=== PATIENT | male | born 1945 | race Caucasian/White ===

== ENCOUNTER 2019-03-04 20:05 | Emergency (ER) | payer MEDICARE, OTHER ==
[~2019-03-04] VITALS: Ht 180.3 cm; Wt 75.0 kg
[2019-03-04 20:42] LABS: BASO % 0.4 % (0.0-2.0); EOS # 0.1 (0.0-0.7); EOS % 2.5 % (0-4.0); GRAN # 3.7 (1.4-6.5); LYMPH # 0.8 (1.2-3.4); LYMPH % 15.2 % (20.0-51.0); MEAN CELL VOLUME 101 fl (80.0-100.0); MEAN CORPUSCULAR HGB CONC 33 g/dl (33.0-37.0); MEAN PLATELET VOLUME 9.9 fl (7.4-10.4); MONO # 0.5 (0.1-0.6); MONO % 10.3 % (1.7-9.3); PLATELET COUNT 104 K/mm3 (130-400); RED BLOOD COUNT 1.79 M/mm3 (4.20-5.60); REDCELL DISTRIBUTION WIDTH-CV 17.5 % (11.5-14.5)
[2019-03-04 20:45] LABS: PROTHROMBIN TIME 11.5 SECONDS (9.7-12.8)
[2019-03-04 20:46] LABS: HEMATOCRIT 18.1 % (42.0-52.0); MEAN CORPUSCULAR HEMOGLOBIN 34 pg (27.0-31.0)
[2019-03-04 20:52] LABS: ALBUMIN 2.6 gm/dL (3.5-5.0); BILIRUBIN,TOTAL 0.1 mg/dL (0.0-1.0); CALCIUM 7.8 mg/dL (8.4-10.2); CREATININE, serum 1.6 (0.66-1.25); POTASSIUM 4.2 mmol/L (3.4-5.0); TOTAL PROTEIN 4.7 gm/dL (6.4-8.2)
[2019-03-04 21:06] LABS: COLLECTION METHOD CLEAN CATCH
[2019-03-04 21:17] LABS: PH 6 (5-8); SQUAMOUS EPITHELIAL None Seen /hpf; URINE APPEARANCE Turbid; URINE BACTERIA None Seen /hpf; URINE BILIRUBIN Negative (NEGATIVE); URINE BLOOD 3+ (NEGATIVE); URINE COLOR Red; URINE GLUCOSE 1+ (NEGATIVE); URINE KETONE Trace (NEGATIVE); URINE LEUKOCYTE ESTERASE Negative (NEGATIVE); URINE NITRATE Negative (NEGATIVE); URINE PROTEIN(semi-quant) 2+ (NEGATIVE); URINE RBC >50 /hpf; URINE UROBILINOGEN Negative (NEGATIVE)
[2019-03-04 22:33] VITALS: BP 123/61; PULSE 80; TEMP 98.3
[2019-03-04 22:35] VITALS: BP 133/61; PULSE 77; TEMP 98.1
[2019-03-04] MEDS ORDERED: COZAAR100 MG PO (22:47)
[2019-03-04] MEDS ORDERED: CARDURA4 MG PO (22:48)
[2019-03-04] MEDS ORDERED: PRIL40 PO (22:50)
[2019-03-04] MEDS ORDERED: NORVASC 5MG5 MG/TAB PO (22:50)
[2019-03-04] MEDS ORDERED: XANAX .25M0.25 MG/TA PO (22:51)
[2019-03-04] MEDS ORDERED: B-12 500 MCG PO (22:52)
[2019-03-04] MEDS ORDERED: VITAMIN C500 MG PO (22:52)
[2019-03-04] MEDS ORDERED: TRIAM OI 15 0.025 TOP (22:52)
[2019-03-04] MEDS ORDERED: LUTEIN6 MG PO (22:53)
[2019-03-04 22:55] VITALS: BP 123/62; PULSE 79; TEMP 98.7
[2019-03-04 23:10] VITALS: BP 128/61; PULSE 75; TEMP 98.5
[2019-03-04 23:59] VITALS: BP 114/53; PULSE 81; TEMP 98.6
[2019-03-05 00:23] VITALS: BP 125/66; PULSE 79; TEMP 98.5
[2019-03-05 01:05] VITALS: BP 118/56; PULSE 77; TEMP 97.8
[2019-03-05 01:20] VITALS: BP 116/54; PULSE 73; TEMP 97.6
[2019-03-05 01:35] VITALS: BP 130/54; PULSE 73; TEMP 97.8
[2019-03-05 01:50] VITALS: BP 117/49; PULSE 75; TEMP 97.8
[2019-03-05 02:15] VITALS: BP 121/55; PULSE 73
== END 2019-03-05 02:15 | disposition short-term general hospital (02) ==
LOC: COL.ER 20:05
PROVIDERS: Emergency Medicine
DX: R55 Syncope and collapse (principal); D64.9 Anemia, unspecified; Z95.2 Presence of prosthetic heart valve; Z85.51 Personal history of malignant neoplasm of bladder
CPT/HCPCS: P9016

== ENCOUNTER 2019-03-11 02:36 | Inpatient (IN) | payer MEDICARE, OTHER ==
[~2019-03-11] VITALS: Ht 180.3 cm; Wt 78.7 kg
[~2019-03-11 02:36] MED LIST: B-12 500 MCG PO; CARDURA4 MG PO; COZAAR100 MG PO; LUTEIN6 MG PO; NORVASC 5MG5 MG/TAB PO; PRIL40 PO; TRIAM OI 15 0.025 TOP; VITAMIN C500 MG PO; XANAX .25M0.25 MG/TA PO
[2019-03-11] MEDS ORDERED: TYLENOL 325MG325 MG PO (02:55)
[2019-03-11] MEDS ORDERED: NORVASC2.5 MG PO (02:55)
[2019-03-11] MEDS ORDERED: KLONOPIN WAFE0.25 MG PO (02:56)
[2019-03-11] MEDS ORDERED: TAMBOCOR50 MG PO (02:57)
[2019-03-11] MEDS ORDERED: NEURONTIN100 MG/CAP PO (02:57)
[2019-03-11] MEDS ORDERED: LEVSIN 0.10.125 MG/T PO (02:58)
[2019-03-11] MEDS ORDERED: DITROPAN 5MG TAB5 MG PO (02:59)
[2019-03-11] MEDS ORDERED: TOPROL XL 25MG25 MG PO (02:59)
[2019-03-11] MEDS ORDERED: SENOKOT S 50 MG1 TAB PO (03:00)
[2019-03-11] MEDS ORDERED: LEADER CLE17 GM/Dose PO (03:00)
[2019-03-11] MEDS ORDERED: OCEAN NASAL SPR45 ML NS (03:01)
[2019-03-11 03:04] LABS: BASO % 0.4 % (0.0-2.0); EOS # 0.2 (0.0-0.7); EOS % 1.8 % (0-4.0); GRAN # 6.7 (1.4-6.5); GRAN % 81.9 % (42.2-75.2); LYMPH # 0.6 (1.2-3.4); LYMPH % 6.7 % (20.0-51.0); MEAN CELL VOLUME 100 fl (80.0-100.0); MEAN CORPUSCULAR HGB CONC 32 g/dl (33.0-37.0); MEAN PLATELET VOLUME 9.7 fl (7.4-10.4); MONO # 0.7 (0.1-0.6); MONO % 8.8 % (1.7-9.3); PLATELET COUNT 112 K/mm3 (130-400); RED BLOOD COUNT 2.42 M/mm3 (4.20-5.60); REDCELL DISTRIBUTION WIDTH-CV 18.6 % (11.5-14.5)
[2019-03-11 03:05] LABS: HEMATOCRIT 24.2 % (42.0-52.0); HEMOGLOBIN 7.7 g/dl (13.5-18.0); MEAN CORPUSCULAR HEMOGLOBIN 32 pg (27.0-31.0)
[2019-03-11 03:17] LABS: ALANINE AMINOTRANSFERASE 20 U/L (21-72); ALBUMIN 2.6 gm/dL (3.5-5.0); ALKALINE PHOSPHATASE 39 U/L (50-136); ANION GAP 6 mmol/L (7-16); AST,SGOT 19 U/L (15-37); BILIRUBIN,TOTAL 0.2 mg/dL (0.0-1.0); BLOOD UREA NITROGEN 36 mg/dL (9-20); C-REACTIVE PROTEIN 0.6 mg/dL (0.0-0.9); CALCIUM 7.5 mg/dL (8.4-10.2); CARBON DIOXIDE 24 mmol/L (22-30); CHLORIDE 96 mmol/L (98-107); CREATINE KINASE 98 U/L (55-170); GLUCOSE 123 mg/dL (74-106); POTASSIUM 4.4 mmol/L (3.4-5.0); SODIUM 126 mmol/L (137-145); TOTAL PROTEIN 4.7 gm/dL (6.4-8.2)
[2019-03-11 03:28] LABS: TROPONIN-I < 0.012 ng/mL (0.000-0.035)
[2019-03-11 04:36] LABS: COLLECTION METHOD CATHETER
[2019-03-11 04:50] LABS: MUCOUS Present /lpf; PH 5 (5-8); SQUAMOUS EPITHELIAL None Seen /hpf; URINE APPEARANCE Cloudy; URINE BACTERIA Rare /hpf; URINE BILIRUBIN Negative (NEGATIVE); URINE BLOOD 3+ (NEGATIVE); URINE COLOR Yellow; URINE GLUCOSE Negative (NEGATIVE); URINE KETONE Negative (NEGATIVE); URINE LEUKOCYTE ESTERASE 2+ (NEGATIVE); URINE NITRATE Negative (NEGATIVE); URINE PROTEIN(semi-quant) 2+ (NEGATIVE); URINE RBC >50 /hpf; URINE UROBILINOGEN Negative (NEGATIVE)
--- NOTE | 2019-03-11 05:29 | NUR ---
Pt arrived to room 323, transferred per stretcher by ED staff. Pt awake, a&o, cooperative c cares. Son at bedside. Pt denies pain or other c/o. Pt/son oriented to room, unit policies et current POC. Questions invited et answered, both verbalize understanding. No needs at this time. Will continue admit process. Gloria dhillon pt at this time.
[2019-03-11 06:13] VITALS: BP 117/64; PULSE 52; TEMP 98
[2019-03-11] MEDS ORDERED: KLONOPIN 0.5MG0.5 MG PO (06:44)
[2019-03-11 07:24] LABS: HEMATOCRIT 22.4 % (42.0-52.0); HEMOGLOBIN 7.4 g/dl (13.5-18.0)
[2019-03-11 07:43] VITALS: BP 110/57; PULSE 52; TEMP 98.4
--- NOTE | 2019-03-11 09:23 | NUR ---
SW and SW student attended clinical rounds to disucuss discharge planning. Patient lives at home with his , in [place], and his son lives close by. Patient's PCP is Dr Virgilio Craig and he obtains prescriptions from [facility] pharmacy. Patient normally uses a cane ambulation but since his admission at [facility], he has been using a walker. Patient does not have home health services but him and his has thought about obtaining those services. Patient will be seen by PT and OT today. SW will follow up with patient after recommendations are made. Patient reports he does have a DPOA and SW requested if patient's family visits that they bring a copy for his chart. SW will continue to follow and assist with discharge needs.
--- NOTE | 2019-03-11 10:19 | NUR ---
Patient resting in bed. Hospitalist team rounded this am. Patient was up to the bathroom & had Bm. Flores remains to DD, tea colored output. Ivf per orders. Took am medications without difficulty. Tolerated breakfast. Orthostatic Bp stable. Will monitor.
--- NOTE | 2019-03-11 11:14 | NUR ---
Patient son & daughter updated on plan of care. Patient is sleeping soundly in bed.
[2019-03-11 11:38] VITALS: BP 101/53; PULSE 71; TEMP 98.4
--- NOTE | 2019-03-11 11:49 | NUR ---
SILVERIO met with patient's son, Agus, and daughter in law, Teri. Agus informed SW that while patient was at [facility], the case finisher suggested patient go to SNF but patient refused because his is diasabled and he is the main laboratory animal caretaker. Patient was set up with [facility] and they were planning to see patient tomorrow. SILVERIO will contact [facility] and inform them that patient is admitted to the hospital. Agus and Teri inquired about what services were available to the patient's if patient needed SNF. SILVERIO informed them that patient's PCP can order home health services or they can private pay for her to go to a SNF while patient is also at SNF. SILVERIO provided the medicare.gov resource list for home health services in [place]. SILVERIO reported she will contact them after PT/OT make recommendations. Agus [phone] Teri [phone]
[2019-03-11] MEDS ORDERED: VITAMIN C500 MG PO (12:45)
--- NOTE | 2019-03-11 13:46 | NUR ---
Patient resting in bed. Working on lunch, he son at bedside & we reviewed medication given per his request. PT plans on seeing patient at 245 this afternoon. Son wants to see be present wehn they round. He plans on bringing patient up this afternoon to see him as well. Social work involved in discharge planning.
[2019-03-11 13:48] LABS: HEMATOCRIT 21.7 % (42.0-52.0)
[2019-03-11 16:27] VITALS: BP 124/56; PULSE 81; TEMP 99.1
--- NOTE | 2019-03-11 18:10 | NUR ---
resting in bed visiting with his , asking questions about afternoon and evening meds, reviewed these with him and explained he had the afternoon meds at 1300, verbalizes understanding
[2019-03-11 19:33] VITALS: BP 121/50; PULSE 73; TEMP 98.6
--- NOTE | 2019-03-11 19:45 | NUR ---
Patient sitting up in bed eating dinner. His supportive family has been at bedside. Great urine output today via che. Bedside report to Laney MORENO.
--- NOTE | 2019-03-11 21:00 | NUR ---
Patient ambulates with staff and walker in hallway. Gait steady. Back to room, patient is alert and oriented x4. Has IVF to right forearm without redness or swelling. Has indwelling catheter with yellow urine. 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
[2019-03-12] VITALS (12 sets, daily range): BP systolic 111–132; BP diastolic 46–62; PULSE 63–73; TEMP 98.2–98.6
--- NOTE | 2019-03-12 03:00 | NUR ---
Patient with excellent urine output. VS stable. Denies pain.
[2019-03-12 06:54] LABS: BASO % 0.5 % (0.0-2.0); EOS # 0.1 (0.0-0.7); EOS % 3.7 % (0-4.0); GRAN # 2.5 (1.4-6.5); GRAN % 67.4 % (42.2-75.2); LYMPH # 0.6 (1.2-3.4); LYMPH % 16.3 % (20.0-51.0); MEAN CELL VOLUME 101 fl (80.0-100.0); MEAN CORPUSCULAR HGB CONC 33 g/dl (33.0-37.0); MEAN PLATELET VOLUME 10.2 fl (7.4-10.4); MONO # 0.4 (0.1-0.6); MONO % 11.8 % (1.7-9.3); PLATELET COUNT 107 K/mm3 (130-400); RED BLOOD COUNT 2.11 M/mm3 (4.20-5.60); REDCELL DISTRIBUTION WIDTH-CV 18.4 % (11.5-14.5)
[2019-03-12 06:55] LABS: HEMATOCRIT 21.4 % (42.0-52.0); MEAN CORPUSCULAR HEMOGLOBIN 33 pg (27.0-31.0)
[2019-03-12 06:56] LABS: CALCIUM 7.4 mg/dL (8.4-10.2); CREATININE, serum 1.43 (0.66-1.25); POTASSIUM 4.4 mmol/L (3.4-5.0)
--- NOTE | 2019-03-12 09:45 | NUR ---
Patient alert and oriented, answers questions appropriately. See assessment. Denies vertigo or lightheadedness. Flores catheter patent and draining clear yellow urine. No c/o at this time. Hospitalist BRUNILDA notified of hgb 7.0.
--- NOTE | 2019-03-12 12:19 | NUR ---
First visit from the tune up mechanic. Stave Saw Operator prayed with patient and family. No other needs right now.
--- NOTE | 2019-03-12 12:56 | NUR ---
SW attended clinical rounds and met with patient, patient's , and patient's son. Patient is agreeable to go to SNF. SW provided medicare.gov resource list for nursing facilities in [place]. Patient and family chose 1. [facility] 2. [facility]. SW faxed referral and contacted both facilities.
--- NOTE | 2019-03-12 15:34 | NUR ---
Patient has been accepted to [facility] for a skilled stay. SW informed patient and son that they can admit patient tomorrow afternoon.
--- NOTE | 2019-03-12 18:45 | NUR ---
Patient in lowered bed with call light within reach. Oral fluids provided. Son in room visiting. No complaints of pain or discomfort at this time. Report off given to Zofia marti RN.
--- NOTE | 2019-03-12 21:20 | NUR ---
Notified by quick technician that patient had run of VTach with 6 beats. This nurse was at patients bedside administering night medications, patient without symptoms at this time. 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 SL to right forearm without redness or swelling. Patient is alert and oriented x4.
--- NOTE | 2019-03-12 21:40 | NUR ---
Call from telemetry reporting frequent PVC's with run of VTach 8 beats. Patient VS 132/62 P=64 R=20 SaO2=97% at 2144. EKG ordered.
--- NOTE | 2019-03-12 22:05 | NUR ---
Anjelica LUU notified of EKG results and frequent occurrences of runs of VTach. New order for Toprol XL 12.5mg po now.
--- NOTE | 2019-03-12 22:16 | NUR ---
Oral dose of Toprol XL 12.5mg given at this time. Patient informed of telemetry readings.
--- NOTE | 2019-03-12 22:31 | NUR ---
Notified Anjelica LUU of patients continued runs of VTach topping out at 20beats. Order for EKG to try and capture episodes for review.
--- NOTE | 2019-03-12 22:40 | NUR ---
Patient connected to EKG for attempt to capture runs of Vtach. Patient reports having some anxiety regarding current situation.
--- NOTE | 2019-03-12 23:00 | NUR ---
Patient has not had any runs of VTach while connected to the EKG machine. Will monitor for changes.
--- NOTE | 2019-03-12 23:15 | NUR ---
Anjelica CHAU at the nurses station, informed of findings and unability to capture run of VTAch. Patient then proceeds to have 17 beats at 2320, patient asymptomatic without chest pain or any complaints at this time.
[2019-03-13 01:10] VITALS: BP 123/66
--- NOTE | 2019-03-13 01:16 | NUR ---
Notified by hvac maintenance technician, patient having episodes of bradycardia, less than 50 beats per minute, not sustained below 50. Anjelica CHAU notified, no new orders.
--- NOTE | 2019-03-13 03:46 | NUR ---
Patient continues to have non sustained bradycardia below 50BPM. Patient sleeping at this time.
[2019-03-13 04:02] VITALS: BP 121/54; PULSE 56; TEMP 98.1
--- NOTE | 2019-03-13 06:00 | NUR ---
Patient continues to have episodes of bradycardia without remaining below 50bpm. Takes AM med without problem. Up to bathroom, has BM and back to bed.
[2019-03-13 06:59] LABS: BASO % 0.5 % (0.0-2.0); EOS # 0.2 (0.0-0.7); GRAN # 4.6 (1.4-6.5); GRAN % 76.6 % (42.2-75.2); LYMPH # 0.5 (1.2-3.4); LYMPH % 8.8 % (20.0-51.0); MEAN CELL VOLUME 99 fl (80.0-100.0); MEAN CORPUSCULAR HGB CONC 32 g/dl (33.0-37.0); MEAN PLATELET VOLUME 9.9 fl (7.4-10.4); MONO # 0.6 (0.1-0.6); MONO % 9.8 % (1.7-9.3); PLATELET COUNT 126 K/mm3 (130-400); RED BLOOD COUNT 2.75 M/mm3 (4.20-5.60)
[2019-03-13 07:00] LABS: HEMATOCRIT 27.3 % (42.0-52.0); HEMOGLOBIN 8.8 g/dl (13.5-18.0); MEAN CORPUSCULAR HEMOGLOBIN 32 pg (27.0-31.0)
--- NOTE | 2019-03-13 07:43 | NUR ---
Received phone call from telemetry about rate and rhythm. Halina with Hospitalist notified. Request to keep pulse parameters at the current rate at this time. Report from telemetry is occasional PVCs and possible short runs of V-tach. Patient is asymtomatic at this time.
[2019-03-13 07:50] VITALS: BP 131/61; PULSE 52; TEMP 98.1
--- NOTE | 2019-03-13 08:24 | NUR ---
Dr Malone notified of consult.
--- NOTE | 2019-03-13 09:02 | NUR ---
SW attended clinical rounds. Patient will discharge today to [facility] for half-way, PT and, OT. SW will fax discharge orders once they're completed.
[2019-03-13 09:36] VITALS: BP 131/61; PULSE 52; TEMP 98.1
--- NOTE | 2019-03-13 12:06 | NUR ---
Patient discharged with son to detention in [place], [place]. Report called to Brandy. Patient discharged via wheelchair at 1200.
== END 2019-03-13 12:00 | DRG 683 ==
LOC: COL.ER 02:36 → SURG 04:26
PROVIDERS: Emergency Medicine; Nurse Practitioner; ADMIT Hospitalist
DX: N17.9 Acute kidney failure, unspecified (principal); E87.1 Hypo-osmolality and hyponatremia; E86.0 Dehydration; I12.9 Hypertensive chronic kidney disease with stage 1 through stage 4 chronic kidney disease, or unspecified chronic kidney disease; N18.9 Chronic kidney disease, unspecified; D64.9 Anemia, unspecified; Z95.2 Presence of prosthetic heart valve; E78.5 Hyperlipidemia, unspecified; Z85.51 Personal history of malignant neoplasm of bladder; F41.9 Anxiety disorder, unspecified; Z85.520 Personal history of malignant carcinoid tumor of kidney
CPT/HCPCS: 99222-AI; 99232-AI; 99239; A4216; J0696; J7030; P9016